=== PATIENT | female | born 1990 | race Caucasian/White ===

== ENCOUNTER → 2018-09-03 14:35 | Outpatient (CLI) | payer SELFPAY ==
[2016-11-18 01:11] VITALS: BMI 30.9
== END ==
PROVIDERS: Visit Provider Obstetrics & Gynecology
DX: Z12.4 Encounter for screening for malignant neoplasm of cervix (principal)
CPT/HCPCS: 88175; G0145

== ENCOUNTER → 2018-09-10 | Outpatient (CLI) | payer SELFPAY ==
[2018-09-10 14:03] LABS: Progesterone Level 13.22 ng/mL (See Comment)
== END | disposition home or self-care (01) ==
LOC: WOBLAB 10:55
PROVIDERS: Visit Provider Obstetrics & Gynecology
DX: N97.0 Female infertility associated with anovulation (principal)
CPT/HCPCS: 36415; 84144

== ENCOUNTER → 2019-02-21 10:14 | Outpatient (CLI) | payer SELFPAY | PROVIDERS: Visit Provider Obstetrics & Gynecology | DX: N97.0 Female infertility associated with anovulation (principal) | CPT/HCPCS: 36415; 84144 ==

== ENCOUNTER → 2019-03-17 10:09 | Outpatient (CLI) | payer SELFPAY ==
[2019-03-17 12:46] LABS: Progesterone Level 15.42 ng/mL (See Comment)
== END ==
PROVIDERS: Visit Provider Obstetrics & Gynecology
DX: N97.0 Female infertility associated with anovulation (principal)
CPT/HCPCS: 84144

== ENCOUNTER → 2019-04-15 09:27 | Outpatient (CLI) | payer SELFPAY ==
[2019-04-15 10:56] LABS: Progesterone Level 22.31 ng/mL (See Comment)
== END ==
PROVIDERS: Visit Provider Obstetrics & Gynecology
DX: N97.0 Female infertility associated with anovulation (principal)
CPT/HCPCS: 36415; 84144

== ENCOUNTER → 2019-05-12 09:55 | Outpatient (CLI) | payer SELFPAY ==
[2016-11-18 01:11] VITALS: BMI 30.9
[2019-05-12 11:26] LABS: Progesterone Level 31.24 ng/mL (See Comment)
== END ==
PROVIDERS: Visit Provider Obstetrics & Gynecology
DX: N97.0 Female infertility associated with anovulation (principal)
CPT/HCPCS: 36415; 84144

== ENCOUNTER → 2020-02-03 15:47 | Outpatient (CLI) | payer SELFPAY ==
[2016-11-18 01:11] VITALS: BMI 30.9
[2020-02-03 16:13] LABS: Hematocrit 38.9 % (37-47); Hemoglobin 13.1 g/dL (12.0-15.0); Mean Corp Hgb Conc 33.7 g/dL (32-36); Mean Platelet Vol. 9.8 fl (6.2-12.0); Platelet Count 200 K/mm3 (150-450); RBC Distribution Width CV 12.2 % (11.6-14.6); RBC Distribution Width SD 40.2 fl (35.1-43.9); Red Blood Count 4.37 M/mm3 (4.2-5.4); White Blood Count 5.5 K/mm3 (4.4-11.0)
[2020-02-03 16:43] LABS: Ferritin 74 ng/mL (8-252)
== END ==
PROVIDERS: Visit Provider Obstetrics & Gynecology
DX: R53.83 Other fatigue (principal)
CPT/HCPCS: 36415; 82728; 85027